=== PATIENT | female | born 1960 | race Two or more races ===

== ENCOUNTER 2017-02-02 17:02 | Emergency (ER) | payer MEDICAID ==
[2017-02-02 18:00] VITALS: BP 154/72
[2017-02-02] MEDS ORDERED: KETOROLAC TROMETH 60MG/2ML VIAL IM ONE (20:30)
[2017-02-02] MEDS ORDERED: methylPREDNISolone SOD SUCC 125 MG/2 ML VL IM ONE (20:30)
== END 2017-02-02 20:43 | disposition home or self-care (01) ==
LOC: ER 17:04
DX: M54.16 Radiculopathy, lumbar region (principal); G89.29 Other chronic pain; F17.210 Nicotine dependence, cigarettes, uncomplicated
CPT/HCPCS: 96372; 99284; J1885; J2930